=== PATIENT | female | born 1960 | race Caucasian/White ===

== ENCOUNTER 2019-05-26 20:50 | Inpatient (IN) | payer OTHER ==
[~2019-05-26] VITALS: Ht 167.6 cm; Wt 68.0 kg
[2019-05-26 21:19] LABS: BASOPHILS # (AUTO) 0.1 (0.0-0.1); BASOPHILS % 0.9 % (0.0-1.0); EOSINOPHILS # (AUTO) 0.3 (0.0-0.4); EOSINOPHILS % 3.8 % (0.0-6.0); HEMATOCRIT 36.9 % (34.2-44.1); HEMOGLOBIN 11.9 g/dL (12.0-16.0); LYMPHOCYTES % 29.1 % (18.0-39.1); MEAN CORPUSCULAR HEMOGLOBIN 30.1 pg (28-32); MEAN CORPUSCULAR HGB CONC 32.2 g/dL (31-35); MEAN CORPUSCULAR VOLUME 93.4 fL (81-99); MONOCYTES # (AUTO) 0.7 (0.2-0.8); MONOCYTES % 10.8 % (4.4-11.3); NEUTROPHILS # (AUTO) 3.8 (2.1-6.9); PLATELET COUNT 225 x10e3/uL (140-360); RED BLOOD COUNT 3.95 x10e6/uL (3.6-5.1); RED CELL DISTRIBUTION WIDTH 12.7 % (11.7-14.4)
[2019-05-26] MEDS ORDERED: ASPIRIN 81 MG CHEW TAB PO ONE (21:30)
[2019-05-26 21:36] LABS: ALANINE AMINOTRANSFERASE 8 IU/L (0-55); ALBUMIN 1.8 g/dL (3.5-5.0); ALBUMIN/GLOBULIN RATIO 0.4 (0.8-2.0); ALKALINE PHOSPHATASE 79 IU/L (40-150); ANION GAP 14.6 mmol/L (8-16); BLOOD UREA NITROGEN 29 mg/dL (7-26); BUN/CREATININE RATIO 15 (6-25); CALCIUM 8.8 mg/dL (8.4-10.2); CARBON DIOXIDE 17 mmol/L (22-29); CHLORIDE 111 mmol/L (98-107); CREATINE KINASE 129 IU/L (29-168); CREATININE, SERUM 1.98 mg/dL (0.57-1.11); EST GLOMERULAR FILTRATION RATE 26 ML/MIN (60-); GLUCOSE 97 mg/dL (74-118); POTASSIUM 3.6 mmol/L (3.5-5.1); SODIUM 139 mmol/L (136-145)
--- NOTE | 2019-05-26 22:22 | Diagnostic Imaging Report ---
EXAMINATION: CHEST 2 VIEWS INDICATION: Short of breath COMPARISON: None FINDINGS: PA and lateral views TUBES and LINES: None. LUNGS/PLEURA: Homogeneous opacification of the right mid and lower lung. Left lung well aerated. Right lung apex is aerated. HEART AND MEDIASTINUM: The cardiomediastinal silhouette is does not appear large, although the right pleural effusion obscures the right mediastinal border.. BONES AND SOFT TISSUES: No acute osseous lesion. Soft tissues are unremarkable. Degenerative changes in the spine and shoulders. UPPER ABDOMEN: No free air under the diaphragm. IMPRESSION: Large right pleural effusion, underlying pneumonia or mass is not excluded. Recommend repeat chest imaging after management of large pleural effusion. Signed by: Kilo Lopez DO on 05/26/2019 10:19 PM
[2019-05-26 22:32] LABS: INR 1.01; PROTHROMBIN TIME 13.8 seconds (11.9-14.5)
[2019-05-26 22:33] LABS: PARTIAL THROMBOPLASTIN TIME 32.9 seconds (23.8-35.5)
[2019-05-26] MEDS ORDERED: ONDANSETRON HCL INJ 2MG/ML 2ML 2 MG/ML VIAL IV PRN (23:30)
[2019-05-26] MEDS ORDERED: SODIUM CHLORIDE FLUSH 10 ML SYR INJ PRN (23:30)
--- OUTSIDE RECORDS SUMMARY | 2019-05-26 23:37 | XMS REPORT ---
Author [facility] Address Unknown Phone Unavailable Care Team Providers Care Hall Worker Name Role Phone Jen MONTALVO Unavailable Unavailable Problems This patient has no known problems. Allergies, Adverse Reactions, Alerts This patient has no known allergies or adverse reactions. Medications This patient has no known medications. Results Test Description Test Time Test Comments Text Results Atomic Results Result Comments CHEST 2 VIEWS 2019-05-26 22:16:00 [place] [address] Patient Name: YANA AIKEN MR #: [id number] : 1960 Age/Sex: 59/F Req #: [id number] Adm Physician: Ordered by: JESSI MONTALVO MD Report #: [id number] Location: ER Room/Bed: Procedure: [id number] DX/CHEST 2 VIEWS Exam Date: 05/26/19 Exam Time: 2124 REPORT STATUS: Signed EXAMINATION: CHEST 2 VIEWS INDICATION: Short of breath COMPARISON: None FINDINGS: PA and lateral views TUBES and LINES: None. LUNGS/PLEURA: Homogeneous opacification of the right mid and lower lung. Left lung well aerated. Right lung apex is aerated. HEART AND MEDIASTINUM: The cardiomediastinal silhouette is does not appear large, although the right pleural effusion obscures the right mediastinal bor torrie.. BONES AND SOFT TISSUES: No acute osseous lesion. Soft tissues are unremarkable. Degenerative changes in the spine and shoulders. UPPER ABDOMEN: No free air under the diaphragm. IMPRESSION: Large right pleural effusion, underlying pneumonia or mass is not excluded. Recommend repeat chest imaging after management of large pleural effusion. Signed by: Kilo Lopez DO on 05/26/2019 10:19 PM Dictated By: KILO LOPEZ DO 18 Transcribed By: REJI on 05/26/192218 COPY TO: JESSI MONTALVO MD
[2019-05-26] MEDS ORDERED: FUROSEMIDE40 MG PO (23:55)
[2019-05-26] MEDS ORDERED: GABAPENTIN300 MG PO (23:55)
[2019-05-26] MEDS ORDERED: LEVETIRACETAM750 MG PO (23:55)
[2019-05-26] MEDS ORDERED: K DUR10 MEQ PO (23:55)
[2019-05-26] MEDS ORDERED: LACTULOSE10 GM/151 PO (23:55)
[2019-05-26] MEDS ORDERED: SPIRONOLACTONE100 MG PO (23:55)
[2019-05-26] MEDS ORDERED: XIFAXAN550 MG PO (23:55)
[2019-05-26 23:59] VITALS: BP 163/98
[2019-05-27] VITALS (9 sets, daily range): BP systolic 142–163; BP diastolic 95–110
--- NOTE | 2019-05-27 00:42 | NUR ---
Received patient from ER. In stable condition, no s/s of distress or c/o pain at this time. All safety measures in place. Family at bedside. Will continue to monitor.
[2019-05-27] MEDS ORDERED: ASPIRIN 81 MG CHEW TAB ONE (02:17)
[2019-05-27] MEDS ORDERED: ACETAMINOPHEN 325 MG TAB PO PRN (07:00)
[2019-05-27] MEDS ORDERED: ACETAMINOPHEN/CODEINE 300MG - 30MG TAB PO PRN (07:00)
[2019-05-27] MEDS ORDERED: MELATONIN 3 MG TAB PO PRN (07:00)
[2019-05-27] MEDS ORDERED: ONDANSETRON HCL INJ 2MG/ML 2ML 2 MG/ML VIAL IV PRN (07:00)
--- NOTE | 2019-05-27 07:13 | NUR ---
received change of shift report from second shift supervisor RN; pt awake, alert, no signs of distress; Joni, CORPSMAN at bedside; family member at bedside.
[2019-05-27] MEDS: LEVETIRACETAM 750 MG PO SCH ×2 (09:58→16:52)
[2019-05-27] MEDS: SPIRONOLACTONE 25 MG TAB PO SCH (09:58)
[2019-05-27] MEDS: RIFAXIMIN 550 MG TABLET PO SCH ×2 (09:58→16:55)
[2019-05-27] MEDS: POTASSIUM CHLORIDE 10MEQ EA PO SCH (09:58)
[2019-05-27] MEDS: LACTULOSE SYRUP 20 GM/30 ML UDC PO SCH ×2 (09:58→16:55)
--- NOTE | 2019-05-27 10:50 | NUR ---
Visit made by the Spiritual Care Department Pastoral Visitor, Irina Collado. PV provided prayer, hospitality, and communion. Pastoral Visitor informed pt/family of the scope of [employer] and availability. MEETA GALLARDO Platform Engineer Spiritual Care Department O: [phone] Pager: [phone] ([phone] number calling from)
--- NOTE | 2019-05-27 15:21 | NUR ---
thoracentesis completed by Dr. Michael Thomas at bedside, pt tolerated well; 1300 ml of pleural fluid removed.
[2019-05-27 15:37] LABS: BODY FLUID APPEARANCE SL.CLOUDY; BODY FLUID TYPE PLEURAL
--- NOTE | 2019-05-27 16:39 | Diagnostic Imaging Report ---
EXAMINATION: CHEST SINGLE (PORTABLE) INDICATION: Postoperative COMPARISON: Chest radiograph of 05/26/2019 FINDINGS: LINES/TUBES:EKG leads overlie the chest. LUNGS:The left lung is well inflated. Right lung volume is low. Patchy opacity at the right lung base, most likely subsegmental atelectasis. PLEURA:Large right pleural effusion. No pneumothorax. MEDIASTINUM:The cardiomediastinal silhouette appears unchanged. BONES/SOFT TISSUES:No acute osseous injury. ABDOMEN:No free air under the diaphragm. IMPRESSION: No significant interval change in large right pleural effusion. No pneumothorax. Signed by: Abel Tomlinson MD on 05/27/2019 4:36 PM
[2019-05-27 16:40] LABS: RBC,BODY FLUID 24 cells/uL; WBC,BODY FLUID 51 cells/uL
[2019-05-27 17:07] LABS: LYMPHOCYTES,BODY FLUID 34 %; MONO/MACROPHG,BODY FLUID 15 %; NEUTROPHILS,BODY FLUID 24 %; OTHER CELLS,BODY FLUID 27 %
--- NOTE | 2019-05-27 18:47 | Operative Report ---
DATE OF PROCEDURE: SURGEON: Michael Thomas MD PROCEDURE: Ultrasound-guided thoracentesis. PREOPERATIVE DIAGNOSIS: Cirrhosis with right pleural effusion. POSTOPERATIVE DIAGNOSIS: Cirrhosis with right pleural effusion. ANESTHESIA: 1% lidocaine for local anesthesia. CONSENT: Consent obtained from the patient. PROCEDURE IN DETAIL: The patient was placed in upright position. The right posterior hemithorax was sterilely prepped and draped. An ultrasound machine was used to locate the pleural space. There was free-flowing fluid with no loculations or masses. A 21-gauge needle was used to anesthetize the area over the 8th posterior lateral rib. A small incision was made in the skin and a 16-gauge catheter was used to access the right pleural space. The catheter was then advanced over the needle. A 1300 mL of clear yellow fluid was removed from the pleural space. COMPLICATIONS: None. POSTOPERATIVE COMPLICATIONS: None. Chest x-ray is pending at the time of the dictation. ESTIMATED BLOOD LOSS: None. Michael Thomas MD [facility]/MODL /[id number]
--- NOTE | 2019-05-27 19:03 | NUR ---
Received bedside report from day nurse. Patient resting in bed, no s/s of distress or c/o pain at this time. All safety measures in place. Family at bedside. Will continue to monitor.
[2019-05-27] MEDS: FUROSEMIDE 40 MG TAB PO SCH (20:25)
[2019-05-27] MEDS: GABAPENTIN 300 MG CAP PO SCH (20:26)
[2019-05-28] VITALS (10 sets, daily range): BP systolic 113–162; BP diastolic 86–102
[2019-05-28 03:24] LABS: BASOPHILS # (AUTO) 0.1 (0.0-0.1); EOSINOPHILS # (AUTO) 0.4 (0.0-0.4); EOSINOPHILS % 4.5 % (0.0-6.0); HEMATOCRIT 32.3 % (34.2-44.1); HEMOGLOBIN 10.3 g/dL (12.0-16.0); LYMPHOCYTES # (AUTO) 2.5 (1.0-3.2); LYMPHOCYTES % 32.6 % (18.0-39.1); MEAN CORPUSCULAR HEMOGLOBIN 30.2 pg (28-32); MEAN CORPUSCULAR HGB CONC 31.9 g/dL (31-35); MEAN CORPUSCULAR VOLUME 94.7 fL (81-99); MONOCYTES # (AUTO) 0.9 (0.2-0.8); MONOCYTES % 11.2 % (4.4-11.3); NEUTROPHILS # (AUTO) 3.9 (2.1-6.9); NEUTROPHILS % 50.2 % (38.7-80.0); PLATELET COUNT 207 x10e3/uL (140-360); RED BLOOD COUNT 3.41 x10e6/uL (3.6-5.1); RED CELL DISTRIBUTION WIDTH 13.1 % (11.7-14.4)
[2019-05-28 03:39] LABS: ANION GAP 14.3 mmol/L (8-16); CALCIUM 8.4 mg/dL (8.4-10.2); CREATININE, SERUM 1.78 mg/dL (0.57-1.11); POTASSIUM 3.3 mmol/L (3.5-5.1)
[2019-05-28 04:00] LABS: THYROID STIMULATING HORMONE 5.701 uIU/mL (0.350-4.940)
[2019-05-28] MEDS: HYDRALAZINE HCL 20 MG/ML VIAL IV PRN (04:51)
--- NOTE | 2019-05-28 05:30 | NUR ---
Patient reports feeling like something is "going back and forth" across her chest. Lung sounds auscultated bilaterally, no changes from earlier assessment. Patient states that this feeling is not new to her, says that it could possibly be anxiety. Denies chest pain and declined pain medication. Reports feeling better upon elevating head of bed. BP down to 142/86 after hydralazine, tele running SR, HR 98, RR 20, O2 96 on RA. All safety measures in place. Family at bedside. Will continue to monitor.
--- NOTE | 2019-05-28 06:59 | NUR ---
Gave bedside report to day nurse. Patient resting in bed, no s/s of distress or c/o pain at this time. Family at bedside. Will continue to monitor.
[2019-05-28 07:25] LABS: ALBUMIN 1.7 g/dL (3.5-5.0); ALBUMIN/GLOBULIN RATIO 0.4 (0.8-2.0); ANION GAP 13.2 mmol/L (8-16); CREATININE, SERUM 1.84 mg/dL (0.57-1.11); POTASSIUM 3.2 mmol/L (3.5-5.1)
[2019-05-28 08:31] LABS: HEMATOCRIT 35.9 % (34.2-44.1); HEMOGLOBIN 11.5 g/dL (12.0-16.0); MEAN CORPUSCULAR HEMOGLOBIN 30.1 pg (28-32); RED BLOOD COUNT 3.82 x10e6/uL (3.6-5.1)
[2019-05-28 08:32] LABS: NEUTROPHILS % 51.1 % (38.7-80.0); PLATELET COUNT 224 x10e3/uL (140-360)
[2019-05-28 08:33] LABS: BASOPHILS # (AUTO) 0.1 (0.0-0.1); BASOPHILS % 1.2 % (0.0-1.0); EOSINOPHILS # (AUTO) 0.4 (0.0-0.4); EOSINOPHILS % 4.5 % (0.0-6.0); LYMPHOCYTES # (AUTO) 2.5 (1.0-3.2); MONOCYTES # (AUTO) 0.8 (0.2-0.8); MONOCYTES % 10.8 % (4.4-11.3); NEUTROPHILS # (AUTO) 3.9 (2.1-6.9)
[2019-05-28] MEDS: RIFAXIMIN 550 MG TABLET PO SCH ×2 (08:36→17:15)
[2019-05-28] MEDS: LEVETIRACETAM 750 MG PO SCH ×2 (08:36→17:23)
[2019-05-28] MEDS: LACTULOSE SYRUP 20 GM/30 ML UDC PO SCH ×2 (08:36→17:23)
[2019-05-28] MEDS: POTASSIUM CHLORIDE 10MEQ EA PO SCH (08:36)
[2019-05-28] MEDS: SPIRONOLACTONE 25 MG TAB PO SCH (08:36)
--- NOTE | 2019-05-28 08:40 | NUR ---
pt going down for CT scan via wheelchair; left in stable condition.
[2019-05-28] MEDS ORDERED: SODIUM CHLORIDE 0.9% 250ML 250 ML ONE (09:34)
[2019-05-28] MEDS: AZITHROMYCIN 500MG/NS 250 ML 250 ML IV SCH (09:43)
[2019-05-28] MEDS: FLUTICASONE PROPIONATE NASAL SPRAY NS SCH ×2 (09:58→17:23)
[2019-05-28] MEDS: IPRATROPIUM BROMIDE 0.03% NASAL SPRAY 30ML SCH ×2 (09:58→17:23)
--- NOTE | 2019-05-28 09:58 | Diagnostic Imaging Report ---
EXAM: CT Chest WITHOUT intravenous contrast 05/28/2019 7:36 AM INDICATION: Shortness of breath, chest pain COMPARISON: Chest radiograph of 05/27/2019 TECHNIQUE: Chest was scanned utilizing a multidetector helical scanner from the lung apex through the level of the adrenal glands without administration of IV contrast. Coronal and sagittal reformations were obtained. Routine protocol was performed. IV CONTRAST: None RADIATION DOSE: Total DLP: 535.8 mGy*cm. Dose modulation, iterative reconstruction, and/or weight based adjustment of the mA/kV was utilized to reduce the radiation dose to as low as reasonably achievable. COMPLICATIONS: None FINDINGS: LINES/ TUBES: None. LUNGS AND AIRWAYS: The central airways are patent. There is complete right lower lobe collapse and atelectasis of the medial segment of the right middle lobe. No focal left lung consolidation. No pulmonary edema. No suspicious pulmonary nodules. PLEURA: Large right pleural effusion measuring simple fluid density. The pleural effusion exerts leftward mass effect upon the mediastinum. HEART AND MEDIASTINUM: There is a 1.3 cm calcified right thyroid lobe nodule. Subcentimeter calcified right supraclavicular lymph node. No mediastinal or hilar lymphadenopathy. There is mild mediastinal shift towards the left due to mass effect from the large right pleural effusion. The heart is not enlarged. No pericardial effusion. UPPER ABDOMEN: Limited noncontrast images of the upper abdomen demonstrate cirrhotic liver surface contour and extensive upper abdominal portosystemic varices compatible with portal hypertension. No focal abnormality of the partially visualized pancreas, adrenals, or upper most kidneys. BONES: No acute osseous injury. No suspicious lytic or blastic lesions. SOFT TISSUES: Unremarkable. IMPRESSION: Large right pleural effusion resulting in complete right lower lobe collapse and collapse of the medial segment of the right middle lobe as well as mild leftward mediastinal shift. No focal pneumonia or pulmonary edema. Liver cirrhosis with small volume ascites and extensive upper abdominal portosystemic varices. 1.3 cm calcified right thyroid nodule. Recommend dedicated thyroid ultrasound on a nonurgent basis for further evaluation. Signed by: Abel Tomlinson MD on 05/28/2019 9:55 AM
--- NOTE | 2019-05-28 13:32 | Consultation ---
DATE OF CONSULTATION: Pulmonary Critical Care Consultation CHIEF COMPLAINT: Large right pleural effusion. HISTORY OF PRESENT ILLNESS: The patient is a 59-year-old woman. She has a history of cirrhosis. She is treated by a scrubbing machine operator in [place]. 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 She is visiting her daughter here in [place] and she noticed more difficulty breathing. She came to the ER and was found to have a large right pleural effusion. She denied fever or cough. She did have some occasional confusion. PAST SURGICAL HISTORY: 1. Status post brain surgery following a hemorrhagic CVA. 2. Status post tonsillectomy. PAST MEDICAL HISTORY: 1. Prior hemorrhagic CVA. 2. Seizure disorder. 3. Cirrhosis secondary to hepatitis C. FAMILY HISTORY: The patient's family has a history of cancer and diabetes. SOCIAL HISTORY: The patient is not an active drinker or smoker. ALLERGIES: THERE ARE NO KNOWN DRUG ALLERGIES. REVIEW OF SYSTEMS: The patient is afebrile. There is no headache. She does complain of some nasal congestion. She has no sore throat. She has no neck pain. She is not complaining of any abdominal pain. She did note some dyspnea. She has no abdominal swelling. She has no abdominal pain. There is no nausea or vomiting. She has no leg edema. PHYSICAL EXAMINATION: VITAL SIGNS: The patient is afebrile. The blood pressure is 142/86 and the pulse is 98. HEENT: Shows no facial swelling or erythema. CARDIAC: Reveals regular rate and rhythm with normal S1 and S2. There are no murmurs or rubs. LUNGS: Auscultation of lungs reveals decreased breath sounds on the right side. ABDOMEN: Soft and nontender. There is no rebound or guarding. There is no leg edema or calf tenderness. There is no cyanosis or clubbing. SKIN: Shows no rashes. LABORATORY DATA: The white blood cell count is 7.7, hemoglobin is 10.3, and the platelet count is 207. The PT is 13.8. The albumin is 1.8. The total bilirubin is 0.2 and the AST and ALT are normal. The bicarbonate is 14 with an anion gap of 28. Ammonia level is 78. IMPRESSION: 1. Hepatic hydrothorax. 2. Cirrhosis secondary to hepatitis C. 3. Anion gap metabolic acidosis. 4. Seizure disorder. 5. Rhinorrhea. 6. Prior hemorrhagic cerebrovascular accident. PLAN: 1. The patient will have a CT scan of the chest today to better delineate the degree of pleural fluid versus atelectasis. 2. Nasal sprays and Zithromax for nasal and sinus congestion. 3. Urinalysis. 4. Continue current regimen for cirrhosis. MD MARK Wells/SANJEEV /[id number]
--- NOTE | 2019-05-28 15:24 | NUR ---
thoracentesis completed at the bedside by Dr. Michael Thomas; 1800 ml fluid removed from right posterior chest. pt tolerated well; will continue to monitor.
--- NOTE | 2019-05-28 16:04 | Diagnostic Imaging Report ---
EXAMINATION: CHEST SINGLE (PORTABLE) INDICATION: Post procedure COMPARISON: Chest CT of earlier the same day, chest radiograph of 05/27/2019 FINDINGS: LINES/TUBES:EKG leads overlie the chest. LUNGS:The left lung is well inflated. Right lung volume remains low. Patchy opacity at the right lung base. PLEURA:Moderately large right pleural effusion, smaller compared to the radiograph of 05/27/2019. No pneumothorax. MEDIASTINUM:The cardiomediastinal silhouette appears unchanged in size and shape. BONES/SOFT TISSUES:No acute osseous injury. ABDOMEN:No free air under the diaphragm. IMPRESSION: Decrease in size of right pleural effusion status post pneumothorax. There is still a moderately large residual pleural effusion. No pneumothorax. Unchanged patchy opacity at the right lung base, likely subsegmental atelectasis. Signed by: Abel Tomlinson MD on 05/28/2019 4:01 PM
[2019-05-28] MEDS: GABAPENTIN 300 MG CAP PO SCH (20:52)
[2019-05-28] MEDS: FUROSEMIDE 40 MG TAB PO SCH (20:52)
--- NOTE | 2019-05-28 23:22 | Operative Report ---
DATE OF PROCEDURE: 05/28/2019 SURGEON: Michael Thomas MD PROCEDURE PERFORMED: Thoracentesis with ultrasound guidance. PREOPERATIVE DIAGNOSIS: Cirrhosis with right-sided pleural effusion. POSTOPERATIVE DIAGNOSIS: Cirrhosis with right-sided pleural effusion. CONSENT: Consent was obtained from the patient. ANESTHESIA: 1% lidocaine was used for local anesthesia. DESCRIPTION OF PROCEDURE: The patient was placed in upright position. The right posterior hemithorax was prepped sterilely and draped. A 1% lidocaine was used to anesthetize the area over the 8th posterior rib. An ultrasound machine was used to locate the pleural fluid. There were no loculations or masses. A 1% lidocaine was then used to anesthetize the area. A small incision was made. A 16-gauge catheter was placed into the pleural space and advanced over a needle. An 1800 mL of yellow fluid was removed from the pleural space. COMPLICATIONS: None. ESTIMATED BLOOD LOSS: None. Michael Thmoas MD [facility]/MODL /[id number]
[2019-05-29] VITALS (8 sets, daily range): BP systolic 131–154; BP diastolic 78–96
--- NOTE | 2019-05-29 00:23 | Diagnostic Imaging Report ---
EXAM: Complete Abdominal Ultrasound INDICATION: Liver cirrhosis COMPARISON: Chest CT 05/28/2019. TECHNIQUE: Transverse and longitudinal images of the upper abdomen were obtained. FINDINGS: Liver: Size: 13.16 cm in the right midclavicular line, small Appearance: Heterogeneous echogenicity, nodular hepatic surface contour. Mass: No focal masses Spleen: Size: 10.5 cm in length, normal Echogenicity: Normal Mass: No focal masses Gallbladder: Stones/Sludge: Echogenic shadowing gallstone along the dependent gallbladder body lumen. Mild sludge. Wall: Slightly circumferentially thickened. 0.4 cm. Appearance: Trace pericholecystic fluid. No hydrops. Sonographic Wyatt's Sign: Negative Bile Ducts: Intrahepatic Ducts: No dilatation Extrahepatic Ducts: Common bile duct measures 0.5 cm, no dilatation Pancreas: Limited visualization due to obscuration by overlying bowel, visualized portions are unremarkable. Right Kidney: Size: 10.1 cm Echogenicity: Normal Parenchymal thickness: Normal Collecting System: No hydronephrosis Stone: None Cyst/Mass: None Left Kidney: Size: 10.8 cm Echogenicity: Normal Parenchymal thickness: Normal Collecting System: No hydronephrosis Stone: None Cyst/Mass: None Vessels: Aorta: Visualized portions are normal Inferior Vena Cava: Visualized portions are normal Main Portal Vein: 0.8 cm, normal size with hepatopetal flow. Free Fluid: Small volume simple ascites. Large right pleural effusion. IMPRESSION: 1. Shrunken nodular liver consistent with hepatic cirrhosis. No focal mass identified. 2. Cholelithiasis. Mild circumferential gallbladder wall thickening is likely due to cirrhosis. If there is high clinical suspicion for acute obstructive cholecystitis, a nuclear medicine hepatobiliary scan can evaluate for cystic duct obstruction. 3. Large right pleural effusion. LV hyper to kid LV hypo to spleen Taylor hyper to LV Liver Male < 16 cm Female < 15 cm Kidneys: NL 9-12 cm, <13 cm Spleen < 12 cm CBD < 7 mm CHD < 4-5 mm GB Wall < 3 mm Hydrops > 10 x 5 cm PV < 13 mm Panc. duct 3-2-1 Signed by: Kilo Lopez DO on 05/29/2019 12:20 AM
[2019-05-29 05:43] LABS: BILIRUBIN,URINE NEGATIVE (NEGATIVE); CLARITY,URINE SL CLOUDY (CLEAR); COLOR,URINE YELLOW (YELLOW); KETONES,URINE NEGATIVE (NEGATIVE); LEUKOCYTE ESTERASE ,URINE NEGATIVE (NEGATIVE); NITRITE,URINE NEGATIVE (NEGATIVE); URINE UROBILINOGEN 0.2 mg/dL (0.2 - 1)
[2019-05-29 05:46] LABS: PROTEIN,URINE DIPSTICK 3+ (NEGATIVE)
[2019-05-29] MEDS: LEVOTHYROXINE SODIUM 50 MCG TAB PO SCH (05:49)
[2019-05-29 05:55] LABS: ALBUMIN 1.5 g/dL (3.5-5.0); ALBUMIN/GLOBULIN RATIO 0.4 (0.8-2.0); ANION GAP 12.6 mmol/L (8-16); CALCIUM 8.4 mg/dL (8.4-10.2); CREATININE, SERUM 2.17 mg/dL (0.57-1.11); POTASSIUM 3.6 mmol/L (3.5-5.1)
[2019-05-29 05:56] LABS: BACTERIA,URINE RARE /HPF; EPITHELIAL CELLS,URINE FEW /LPF
--- NOTE | 2019-05-29 07:00 | NUR ---
PATIENT IS AWAKE AND IN STABLE CONDITION WITH NO S/S OF RESPIRATORY DISTRESS. NO PAIN VOICED. DAUGHTER PRESENT IN ROOM. TELEMETRY APPLIED. SCD'S APPLIED. DRESSING NOTED TO POSTERIOR RIGHT SIDE S/P THORACENTESIS. CALL LIGHT IS WITHIN REACH, PATIENT IS INSTRUCTED TO CALL FOR ASSISTANCE NEEDED.
[2019-05-29] MEDS ORDERED: ALBUMIN 25% 25GM 100ML 0.25 GM/ML BTL IV ONE ×2 (08:15→08:30)
[2019-05-29] MEDS: LACTULOSE SYRUP 20 GM/30 ML UDC PO SCH ×2 (08:20→16:55)
[2019-05-29] MEDS: RIFAXIMIN 550 MG TABLET PO SCH ×2 (08:20→16:55)
[2019-05-29] MEDS: POTASSIUM CHLORIDE 10MEQ EA PO SCH (08:21)
[2019-05-29] MEDS: FLUTICASONE PROPIONATE NASAL SPRAY NS SCH ×2 (08:21→16:54)
[2019-05-29] MEDS: SPIRONOLACTONE 25 MG TAB PO SCH (08:21)
[2019-05-29] MEDS: LEVETIRACETAM 750 MG PO SCH ×2 (08:21→16:55)
[2019-05-29] MEDS: AZITHROMYCIN 500MG/NS 250 ML 250 ML IV SCH (08:21)
[2019-05-29] MEDS: IPRATROPIUM BROMIDE 0.03% NASAL SPRAY 30ML SCH ×2 (08:21→16:54)
--- NOTE | 2019-05-29 09:27 | Progress Note ---
DATE: Pulmonary Critical Care Progress Note SUBJECTIVE: The patient had thoracentesis again yesterday with 1800 mL removed. She reports improvement in her dyspnea. Creatinine has increased to 2.17 this morning. PHYSICAL EXAMINATION: VITAL SIGNS: The patient is afebrile. The blood pressure is 154/96 and saturation is 97% on room air. HEENT: Shows no facial swelling or erythema. CARDIAC: Reveals regular rate and rhythm with normal S1, S2. LUNGS: Auscultation of lungs shows decreased breath sounds on the right base. ABDOMEN: Soft, nontender. There is no rebound or guarding. EXTREMITIES: There is no leg edema or calf tenderness. LABORATORY DATA: BUN is 33 and creatinine is 2.17. Carbon dioxide is 16 with chloride of 115. Albumin is 1.5. The platelet count is 224, white blood cell count is 7.75, and hemoglobin is 11.5. IMPRESSION: 1. Cirrhosis secondary to chronic hepatitis. 2. Hepatic hydrothorax. 3. Hepatorenal syndrome, type 2. 4. Anemia secondary to chronic blood loss. 5. Hypertension. PLAN: 1. The patient will receive albumin today. 2. We will hold the Lasix. 3. Repeat creatinine tomorrow morning. 4. I have discussed the problems with hepatic hydrothorax with the patient and the family. They understand that fluid is likely to reaccumulate in the right pleural space. Michael Thomas MD [facility]/SANJEEV /[id number]
--- NOTE | 2019-05-29 13:01 | NUR ---
Nutrition Screen Note RD Recommendation for Physician: -Continue current diet and FR per MD. Plan of Care: RD following, monitoring for tolerance and adequacy. Education provided. Nutrition reason for involvement: MD Consult-2 gm Na education Primary Diagnose(s):pleural effusion PMH: 1. Prior hemorrhagic CVA. 2. Seizure disorder. 3. Cirrhosis secondary to hepatitis C. Ht: 66 in Wt:150 lb BMI: 24.2 kg/m2 IBW: [address] Assessment: 05/29: 59 YOF admitted for pleural effusion with PMH listed above. Pt was seen resting in her bed with daughter at bedside. The pt reported her appetite has improved and she is eating fine, she denied any recent unintentional weight loss. She also denied N/V/C/D, chewing or swallowing issues as well as any food allergies. The pt reported she had a stroke in her past that caused her to speak and read more slowly. Pt was educated on the low na diet, she stated she tries to follow it at home already. Provided her with educational handout and gave her various sources to find healthy low na recipes. Pt verbalized understanding. LBM: 05/28. Pt had thoracentesis yesterday and 1800 ml fluid has been removed. Pt is currently on 1200 ml fluid restriction at this time. Chart reviewed. Labs and meds reviewed. Will continue to monitor. Current Diet: 2 gm na, 1200 ml FR Malnutrition Evaluation 05/29 The patient does not meet criteria for a specified degree of malnutrition at this time. Will re-evaluate at follow-up as appropriate. Diet Education Needs Assessment: Diet education indicated, pt accepted Learner(s): pt and daughter Barriers: none Cultural/Language Modifications: none Readiness: acceptance Method: discussion, handout, teach back Topics: Low Na Diet: food label, grocery shopping tips, foods recommended and not recommended, not adding salt to foods, salt substitutes, meal planning, going out to eat, recipes Understanding/Compliance: verbalized understanding, anticipate good compliance Nutrition Care Level: low Signed: Christy Hughes, RD, LD
--- NOTE | 2019-05-29 13:41 | NUR ---
PATIENT AMBULATING IN THE HALLWAY
--- NOTE | 2019-05-29 15:38 | NUR ---
Received order for home health. Obtained choice from patient and she lives in [place] but will be returning to her sister's house (Annamarie Farias) who lives at [address] [place] [address], [facility] [address] - her number is [phone]. Spoke to Alyssa with [facility] and explained to start services in [facility] in [place] and then transfer to [facility] where patient lives. ST and OT services added to order per Erica Gonzalez NP.
--- NOTE | 2019-05-29 19:09 | NUR ---
PATIENT IS IN STABLE CONDITION WITH NO S/S OF RESPIRATORY DISTRESS-NO PAIN VOICED. TELEMETRY APPLIED. CALL LIGHT IS WITHIN REACH, PATIENT IS INSTRUCTED TO CALL FOR ASSISTANCE NEEDED. REPORT GIVEN TO ONCOMING NURSE.
--- NOTE | 2019-05-29 19:20 | NUR ---
patient received awake, alert, sitting up on side of bed. no c/o pain noted. respirations even and unlabored. pm assessment complete. patient instructed to call for assistance when needed.
[2019-05-29] MEDS ORDERED: FUROSEMIDE 40 MG TAB PO SCH (21:00)
[2019-05-29] MEDS ORDERED: FUROSEMIDE 20 MG TAB PO SCH (21:00)
[2019-05-29] MEDS: GABAPENTIN 300 MG CAP PO SCH (21:00)
[2019-05-30] VITALS (8 sets, daily range): BP systolic 130–165; BP diastolic 67–103
[2019-05-30] MEDS: LEVOTHYROXINE SODIUM 50 MCG TAB PO SCH (05:43)
[2019-05-30 05:56] LABS: BASOPHILS % 0.6 % (0.0-1.0); EOSINOPHILS # (AUTO) 0.3 (0.0-0.4); EOSINOPHILS % 4.7 % (0.0-6.0); HEMATOCRIT 28.1 % (34.2-44.1); HEMOGLOBIN 9.1 g/dL (12.0-16.0); LYMPHOCYTES # (AUTO) 2.5 (1.0-3.2); LYMPHOCYTES % 39.1 % (18.0-39.1); MEAN CORPUSCULAR HGB CONC 32.4 g/dL (31-35); MEAN CORPUSCULAR VOLUME 92.7 fL (81-99); MONOCYTES # (AUTO) 0.6 (0.2-0.8); MONOCYTES % 9.9 % (4.4-11.3); NEUTROPHILS # (AUTO) 2.8 (2.1-6.9); NEUTROPHILS % 44.4 % (38.7-80.0); PLATELET COUNT 171 x10e3/uL (140-360); RED BLOOD COUNT 3.03 x10e6/uL (3.6-5.1); RED CELL DISTRIBUTION WIDTH 12.9 % (11.7-14.4)
[2019-05-30 06:11] LABS: ANION GAP 8.4 mmol/L (8-16); CALCIUM 8.3 mg/dL (8.4-10.2); CREATININE, SERUM 1.71 mg/dL (0.57-1.11); POTASSIUM 3.4 mmol/L (3.5-5.1)
[2019-05-30] MEDS ORDERED: SYNTHROID50 MCG PO (06:40)
--- NOTE | 2019-05-30 07:10 | NUR ---
PATIENT IS ALERT TO SELF, SLIGHT CONFUSION NOTED- PATIENT IS IN STABLE CONDITION WITH NO S/S OF RESPIRATORY DISTRESS. NO PAIN VOICED. TELEMETRY APPLIED. CALL LIGHT IS WITHIN REACH, PATIENT IS INSTRUCTED TO CALL FOR ASSISTANCE NEEDED.
[2019-05-30] MEDS: LACTULOSE SYRUP 20 GM/30 ML UDC PO SCH ×2 (08:14→16:24)
[2019-05-30] MEDS: RIFAXIMIN 550 MG TABLET PO SCH ×2 (08:14→16:24)
[2019-05-30] MEDS: LEVETIRACETAM 750 MG PO SCH ×2 (08:14→16:24)
[2019-05-30] MEDS: POTASSIUM CHLORIDE 10MEQ EA PO SCH (08:14)
[2019-05-30] MEDS: IPRATROPIUM BROMIDE 0.03% NASAL SPRAY 30ML SCH ×2 (08:15→16:24)
[2019-05-30] MEDS: FLUTICASONE PROPIONATE NASAL SPRAY NS SCH ×2 (08:15→16:24)
--- NOTE | 2019-05-30 09:20 | NUR ---
SPOKE WITH [facility], THEY ARE NOT IN NETWORK HERE IN THIS AREA BUT [facility] IS, SPOKE WITH PT SISTER RAVI AND SHE IS OKAY WITH CHOOSING THEM., ALSO LET KNOW CRITERIA FOR HOME HEALTH IS HAVE TO AVIABLE FOR 5 VISITS IN ORDER TO BE ABLE TO START HOME HEALTH. SO IF PT IS STAYING HERE SHE NEEDS TO STAY A WEEK AND A HALF OR MORE TO GET THE 5 VISITS IN. SISTER SHADI STATES THIS WORKS OUT BETTER BECAUSE THE PT DAUGHTER IS HAVING A HARD TIME GETTING HER TO TAKE HER MOTHER HOME. PT WILL DISCHARGE TODAY AND BE PICKED UP AND SEEN BY [facility] ON SATURDAY, STAY WITH SISTER FOR APPROX 2 WEEKS AND THEN WHEN DAUGHTER PICKS HER UP TO RETURN TO [facility] WILL ASSIST HER WITH TRANSFERRING HOME HEALTH TO THE [facility] LOCATION. CLEAR TO DISCHARGE FROM CASE MANAGEMENT PERSPECTIVE.
--- NOTE | 2019-05-30 11:12 | NUR ---
EDUCATED ABOUT IMM, SIGNED, FILED IN CHART, WITH COPY LEFT WITH FAMILY AT BEDSIDE.
[2019-05-30] MEDS: HYDRALAZINE HCL 20 MG/ML VIAL IV PRN (12:01)
[2019-05-30] MEDS ORDERED: POTASSIUM CHLORIDE 20 MEQ TAB CR PO NR (14:30)
--- NOTE | 2019-05-30 14:50 | Diagnostic Imaging Report ---
EXAMINATION: CHEST SINGLE (PORTABLE) INDICATION: Thoracentesis. COMPARISON: 05/27/2019 FINDINGS: LINES/TUBES:EKG leads overlie the chest. LUNGS and PLEURA: Interval decrease in density in the lower right hemithorax suggestive of decrease pleural effusion. Underlying atelectasis versus consolidation. Patchy density in the left lung base again observed suggestive of atelectasis. MEDIASTINUM:The cardiomediastinal silhouette appears unchanged in size and shape. BONES/SOFT TISSUES: No acute abnormality. ABDOMEN:No free air under the diaphragm. IMPRESSION: Further interval decrease in right pleural effusion. Persistent right lower lobe density may represent a combination of residual effusion and possibly atelectasis or consolidation in the proper clinical setting. Signed by: Dr. Giovana Cardenas M.D. on 05/30/2019 2:47 PM
--- NOTE | 2019-05-30 16:00 | Operative Report ---
DATE OF PROCEDURE: SURGEON: Michael Thomas MD PROCEDURE PERFORMED: Ultrasound-guided right thoracentesis. PREOPERATIVE DIAGNOSIS: Cirrhosis with hepatic hydrothorax. POSTOPERATIVE DIAGNOSIS: Cirrhosis with hepatic hydrothorax. ANESTHESIA: 1% lidocaine for local anesthesia. CONSENT: Consent was obtained from the patient. DESCRIPTION OF PROCEDURE: The patient was placed in an upright position. The right posterolateral chest was prepped sterilely. An ultrasound machine was used to locate the right pleural space. There was a large amount of fluid. There were no loculations. There were no masses or pleural lesions. A 1% lidocaine was used to anesthetize the area over the posterior 8th rib. A 21-gauge needle was used to locate the pleural space. A small incision was then made. A 16-gauge needle was used to introduce the catheter. The catheter was advanced over the needle into the pleural space. A 1950 mL of thin cloudy fluid was removed. COMPLICATIONS: None. ESTIMATED BLOOD LOSS: None. Michael Thomas MD [facility]/MODL /[id number]
--- NOTE | 2019-05-30 19:11 | NUR ---
PATIENT IS SITTING UP IN BED- IN STABLE CONDITION WITH NO S/S OF RESPIRATORY DISTRESS. NO PAIN VOICED. TELEMETRY APPLIED. SISTER PRESENT IN ROOM. PATIENT HAD A THORACENTESIS TODAY PERFORMED DR. HOLLAND; TOTAL OUTPUT 1950ML. CALL LIGHT IS WITHIN REACH, PATIENT IS INSTRUCTED TO CALL FOR ASSISTANCE NEEDED. REPORT GIVEN TO ONCOMING NURSE.
[2019-05-30] MEDS: GABAPENTIN 300 MG CAP PO SCH (20:59)
[2019-05-31] VITALS: BP 125/80
[2019-05-31 04:00] VITALS: BP 113/69
[2019-05-31 04:45] LABS: BASOPHILS # (AUTO) 0.1 (0.0-0.1); BASOPHILS % 1.1 % (0.0-1.0); EOSINOPHILS # (AUTO) 0.3 (0.0-0.4); EOSINOPHILS % 3.9 % (0.0-6.0); HEMATOCRIT 29.4 % (34.2-44.1); HEMOGLOBIN 9.6 g/dL (12.0-16.0); LYMPHOCYTES # (AUTO) 2.5 (1.0-3.2); LYMPHOCYTES % 34.6 % (18.0-39.1); MEAN CORPUSCULAR HEMOGLOBIN 30.2 pg (28-32); MEAN CORPUSCULAR HGB CONC 32.7 g/dL (31-35); MEAN CORPUSCULAR VOLUME 92.5 fL (81-99); MONOCYTES # (AUTO) 0.8 (0.2-0.8); MONOCYTES % 11.1 % (4.4-11.3); NEUTROPHILS # (AUTO) 3.4 (2.1-6.9); NEUTROPHILS % 48.2 % (38.7-80.0); PLATELET COUNT 183 x10e3/uL (140-360); RED BLOOD COUNT 3.18 x10e6/uL (3.6-5.1)
[2019-05-31 05:05] LABS: ALBUMIN 1.7 g/dL (3.5-5.0); ALBUMIN/GLOBULIN RATIO 0.5 (0.8-2.0); ANION GAP 12.7 mmol/L (8-16); CALCIUM 8.3 mg/dL (8.4-10.2); CREATININE, SERUM 1.66 mg/dL (0.57-1.11); POTASSIUM 3.7 mmol/L (3.5-5.1)
[2019-05-31] MEDS: LEVOTHYROXINE SODIUM 50 MCG TAB PO SCH (06:03)
--- NOTE | 2019-05-31 07:05 | NUR ---
PATIENT IS IN STABLE CONDITION WITH NO S/S OF RESPIRATORY DISTRESS. PATIENT DENIES PAIN. TELEMETRY APPLIED. CALL LIGHT IS WITHIN REACH, PATIENT IS INSTRUCTED TO CALL FOR ASSISTANCE NEEDED.
[2019-05-31 07:31] VITALS: BP 125/63
[2019-05-31 07:45] VITALS: BP 125/63
[2019-05-31] MEDS: LACTULOSE SYRUP 20 GM/30 ML UDC PO SCH (08:04)
[2019-05-31] MEDS: FLUTICASONE PROPIONATE NASAL SPRAY NS SCH (08:04)
[2019-05-31] MEDS: RIFAXIMIN 550 MG TABLET PO SCH (08:04)
[2019-05-31] MEDS: POTASSIUM CHLORIDE 10MEQ EA PO SCH (08:04)
[2019-05-31] MEDS: LEVETIRACETAM 750 MG PO SCH (08:04)
[2019-05-31] MEDS: IPRATROPIUM BROMIDE 0.03% NASAL SPRAY 30ML SCH (08:04)
--- NOTE | 2019-05-31 10:10 | NUR ---
PATIENT DISCHARGE HOME WITH HOME HEALTH - PATIENT OFF THE UNIT AT 0958 PER WHEELCHAIR ACCOMPANIED BY PCT TO THE FRONT LOBBY. PATIENT IS IN STABLE CONDITION WITH NO S/S OF RESPIRATORY DISTRESS. NO PAIN VOICED. IV REMOVED WITH TIP INTACT. DISCHARGE TEACHING, INSTRUCTIONS, AND MEDICATION GIVEN TO THE PATIENT. ALL PERSONAL ITEMS WERE TAKEN BY THE PATIENT AND HER SISTER.
--- NOTE | 2019-05-31 12:38 | Progress Note ---
DATE: SUBJECTIVE: The patient has less dyspnea. She feels better overall. PHYSICAL EXAMINATION: VITAL SIGNS: The patient is afebrile. The vital signs are stable. HEENT: Shows no facial swelling or erythema. CARDIAC: Reveals a regular rate and rhythm with normal S1 and S2. There are no murmurs or rubs. LUNGS: Auscultation of lungs reveals decreased breath sounds at the bases. There is no wheezing. ABDOMEN: Soft and nontender. There is no rebound or guarding. IMPRESSION: 1. Cirrhosis secondary to hepatitis C. 2. Persistent right pleural effusion. 3. Anemia secondary to chronic blood loss. PLAN: 1. The patient will be discharged home. 2. She will follow up in 1 week. She will have repeat x-ray at that time. 3. She will restart her Aldactone. Michael Thomas MD [facility]/SANJEEV /[id number]
--- NOTE | 2019-06-01 01:56 | Discharge Summary ---
ADMISSION DIAGNOSES: 1. Right large pleural effusion secondary to cirrhosis. 2. Cirrhosis. 3. History of cerebrovascular accident/seizures. 4. Acute kidney injury versus chronic kidney disease. DISCHARGE DIAGNOSES: 1. Right large pleural effusion secondary to cirrhosis. 2. Cirrhosis. 3. History of cerebrovascular accident/seizures. 4. Acute kidney injury versus chronic kidney disease. 5. 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 HISTORY: Cirrhosis, seizures, hemorrhagic CVA, hep C. SURGICAL HISTORY: TMA and a brain surgery, status post hemorrhagic CVA. FAMILY HISTORY: The patient's grandmother has diabetes. The patient's mother, grandmother, and aunts had cancer. SOCIAL HISTORY: Noncontributory. HOSPITAL COURSE: A 59-year-old female admits with complaints of shortness of breath that began 3 days ago. She has an associated dry cough, but denies fever, swelling, and congestion. Symptoms worsened with activity. She has cirrhosis and is compliant with her medication. On admission, EKG showed sinus rhythm at 84. Chest x-ray showed large right pleural effusion. Ultrasound of the abdomen showed shrunken nodular liver consistent with hepatic cirrhosis, cholelithiasis, and large right pleural effusion. CT of the chest showed large right pleural effusion resulting in complete right lower lobe collapse and collapse of the medial segment of the right middle lobe as well as mild leftward mediastinal shift. No focal pneumonia or pulmonary edema. A 1.3 cm calcified right thyroid nodule. The patient was advised to follow up for thyroid ultrasound outpatient. Pulmonology was consulted as well as GI. The patient required 3 thoracenteses, which had 1300 mL pulled on the first one, 1800 pulled out on the second one, and 1.95 L pulled out on the third thoracentesis. The patient's diuretics were resumed at admission and then put on hold for a couple of days to prevent hepatorenal syndrome. At the time of discharge, the patient was advised to continue her diuretics as her kidney function continued to improve. She also started on levothyroxine for hypothyroidism as her TSH was elevated. She will discharge home and follow up closely with primary care and GI. The patient understands discharge instructions and agrees to plan. Vital signs stable, the patient afebrile. Dictated by Erica Quinones NP MD JUDE Torres/MODL /[id number]
== END 2019-05-31 10:00 | disposition home health service (06) | DRG 432 ==
LOC: ER 20:50 → ERHOLD 23:29 → MED/SURG3 23:55 → OBSVTOIN 05-28 12:46
PROVIDERS: ADMIT Internal Medicine; ATTEND Internal Medicine
PROC: 0W993ZZ Drainage of Right Pleural Cavity, Percutaneous Approach (ICD-10-PCS; principal; 2019-05-27)
PROC: 0W993ZZ Drainage of Right Pleural Cavity, Percutaneous Approach (ICD-10-PCS; 2019-05-28)
PROC: 0W993ZZ Drainage of Right Pleural Cavity, Percutaneous Approach (ICD-10-PCS; 2019-05-30)
DX: K74.60 Unspecified cirrhosis of liver (principal); K76.7 Hepatorenal syndrome; J91.8 Pleural effusion in other conditions classified elsewhere; N17.9 Acute kidney failure, unspecified; E87.2 Acidosis; I13.0 Hypertensive heart and chronic kidney disease with heart failure and stage 1 through stage 4 chronic kidney disease, or unspecified chronic kidney disease; R09.1 Pleurisy; Z87.891 Personal history of nicotine dependence; Z82.49 Family history of ischemic heart disease and other diseases of the circulatory system; E78.00 Pure hypercholesterolemia, unspecified; N18.9 Chronic kidney disease, unspecified; G40.909 Epilepsy, unspecified, not intractable, without status epilepticus; J34.89 Other specified disorders of nose and nasal sinuses; B18.2 Chronic viral hepatitis C; D63.8 Anemia in other chronic diseases classified elsewhere; I50.9 Heart failure, unspecified; I69.320 Aphasia following cerebral infarction; E87.6 Hypokalemia; N18.3 Chronic kidney disease, stage 3 (moderate); E03.9 Hypothyroidism, unspecified; Z83.3 Family history of diabetes mellitus; Z80.9 Family history of malignant neoplasm, unspecified; E04.1 Nontoxic single thyroid nodule
CPT/HCPCS: 36415; 71045; 71046; 71250; 76700; 80048; 80053; 81001; 82140; 82550; 82553; 83036; 83615; 83880; 84157; 84443; 84478; 84484; 85025; 85610; 85730; 87086; 89051; 93005; 99284; G0378; J0360; J0456; J7050; P9047

== ENCOUNTER 2024-04-21 21:16 | Emergency (ER) | payer MEDICARE ==
[~2024-04-21] VITALS: Ht 167.6 cm; Wt 68.0 kg
[~2024-04-21 21:16] MED LIST: FUROSEMIDE40 MG PO; GABAPENTIN300 MG PO; K DUR10 MEQ PO; LACTULOSE10 GM/151 PO; LEVETIRACETAM750 MG PO; SPIRONOLACTONE100 MG PO; SYNTHROID50 MCG PO; XIFAXAN550 MG PO
[2024-04-21 21:38] VITALS: RESP 16; TEMP 98.2
[2024-04-21 21:57] LABS: BASOPHILS # (AUTO) 0.1 (0.0-0.1); BASOPHILS % 1.1 % (0.0-1.0); EOSINOPHILS # (AUTO) 0.1 (0.0-0.4); EOSINOPHILS % 2.9 % (0.0-6.0); HEMATOCRIT 38.1 % (34.2-44.1); HEMOGLOBIN 11.7 g/dL (12.0-16.0); LYMPHOCYTES # (AUTO) 1.8 (1.0-3.2); LYMPHOCYTES % 39.4 % (18.0-39.1); MEAN CORPUSCULAR HEMOGLOBIN 29.3 pg (28-32); MEAN CORPUSCULAR HGB CONC 30.7 g/dL (31-35); MEAN CORPUSCULAR VOLUME 95.3 fL (81-99); MONOCYTES # (AUTO) 0.3 (0.2-0.8); MONOCYTES % 7.2 % (4.4-11.3); NEUTROPHILS # (AUTO) 2.2 (2.1-6.9); NEUTROPHILS % 48.7 % (38.7-80.0); PLATELET COUNT 149 x10e3/uL (140-360); RED CELL DISTRIBUTION WIDTH 15.5 % (11.7-14.4); WHITE BLOOD COUNT 4.47 x10e3/uL (4.8-10.8)
[2024-04-21 22:24] LABS: ALBUMIN 2.7 g/dL (3.5-5.0); ALBUMIN/GLOBULIN RATIO 0.8 (0.8-2.0); ANION GAP 13.9 mmol/L (8-16); BILIRUBIN,TOTAL 0.3 mg/dL (0.2-1.2); CALCIUM 8.5 mg/dL (8.4-10.2); CREATININE, SERUM 1.75 mg/dL (0.57-1.11); POTASSIUM 3.9 mmol/L (3.5-5.1); TOTAL PROTEIN 6.1 g/dL (6.5-8.1)
[2024-04-21] MEDS ORDERED: IOPAMIDOL 370 MG/ML 100 ML INFUS..BTL INJ ONE (23:09)
[2024-04-21] MEDS ORDERED: LACTATED RINGER'S 1,000 ML ONE (23:47)
[2024-04-21 23:55] LABS: CLARITY,URINE CLEAR (CLEAR); COLOR,URINE YELLOW (YELLOW); GLUCOSE, URINE NEGATIVE (NEGATIVE); KETONES,URINE TRACE (NEGATIVE); LEUKOCYTE ESTERASE ,URINE NEGATIVE (NEGATIVE); NITRITE,URINE NEGATIVE (NEGATIVE); OPIATES SCREEN,URINE NEGATIVE (NEGATIVE); PH,URINE 6.5 (5 - 7); PROTEIN,URINE DIPSTICK >=300 (NEGATIVE)
[2024-04-21] MEDS: LACTATED RINGER'S 500 ML INJ ONE (23:55)
[2024-04-21] MEDS: LACTATED RINGER'S 500 ML IV ONE (23:55)
[2024-04-21 23:56] LABS: AMPHETAMINES SCREEN,URINE NEGATIVE (NEGATIVE); BENZODIAZEPINES SCREEN,URINE NEGATIVE (NEGATIVE); CANNABINOIDS SCREEN,URINE POSITIVE (NEGATIVE); METHADONE SCREEN, URINE NEGATIVE (NEGATIVE); PHENCYCLIDINE SCREEN,URINE NEGATIVE (NEGATIVE)
[2024-04-21 23:57] LABS: BILIRUBIN,URINE NEGATIVE (NEGATIVE); URINE UROBILINOGEN 0.2 mg/dL (0.2 - 1)
[2024-04-22 00:30] LABS: BACTERIA,URINE MANY /HPF; EPITHELIAL CELLS,URINE MODERATE /LPF; RBC,URINE 0-5 /HPF (0-5)
[2024-04-22] MEDS ORDERED: CEFDINIR300 MG PO (00:56)
[2024-04-22 01:15] VITALS: PULSE 62
[2024-04-22 01:28] VITALS: BP 144/101; O2SAT 100
== END 2024-04-22 01:30 | disposition home or self-care (01) ==
LOC: ER 21:27
DX: R41.0 Disorientation, unspecified (principal); N39.0 Urinary tract infection, site not specified; K76.9 Liver disease, unspecified; G40.909 Epilepsy, unspecified, not intractable, without status epilepticus; K21.9 Gastro-esophageal reflux disease without esophagitis; I69.351 Hemiplegia and hemiparesis following cerebral infarction affecting right dominant side
CPT/HCPCS: 36415; 70450; 70496; 70498; 71045; 80053; 80307; 81001; 84484; 85025; 99284; Q9967; J7120